=== PATIENT | male | born 1930 | race Caucasian/White ===

== ENCOUNTER 2017-02-13 20:08 | Inpatient (IN) | payer MEDICARE, BC ==
[~2017-02-13] VITALS: Ht 167.6 cm; Wt 106.6 kg
[~2017-02-13 20:08] MED LIST: BUME1TAB PO; KLOR20TA6 PO; MAGN400T PO; PREG75 PO; PRIN10TA PO; SIMVASTIN PO; TRAM50 PO; [UNRECOGNIZED DRUG - OTHER]
[2017-02-13 20:23] VITALS: BP 146/65; PULSE 61; RESP 16; TEMP 98.3; O2SAT 96
[2017-02-13 20:35] VITALS: BP 146/65; PULSE 61; RESP 16; TEMP 98.3; O2SAT 96
[2017-02-13] MEDS ORDERED: SODIUM CHLORIDE 0.9% FLUSH 5 ML FLUSH IVF PRN (21:00)
--- NOTE | 2017-02-13 21:07 | PD ---
HPI Chief Complaint: General Weakness Time Seen by Provider: 20:33 Travel History International Travel<30 days: No Contact w/Intl Traveler<30days: No Traveled to known affect area: No History of Present Illness HPI Patient 86-year-old male presents emergency department for evaluation of frequent falls over the past 3 days as well as fatigue. 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 He thinks might have a urinary tract infection. No chest pain or shortness of breath no abdominal pain no fevers. Patient states he feels okay just some weakness in his legs. No history of trauma. PFSH Past Medical History Arthritis: Yes Asthma: No Autoimmune Disease: No Blood Disorders: No Anxiety: No Depression: No Heart Rhythm Problems: No Cancer: No Cardiovascular Problems: Yes (WILLIAM FILTER PLACED 03-25-06) High Cholesterol: Yes Chemotherapy: No Chest Pain: No Congestive Heart Failure: No COPD: No Cerebrovascular Accident: No Diabetes: Yes Patient Takes Glucophage: No Diminished Hearing: No Endocrine: Yes (DIABETIC) Gastrointestinal Disorders: Yes (RECENT POLYP REMOVED) GERD: Yes Glaucoma: Yes Genitourinary: Yes Headaches: No Hepatitis: No Hiatal Hernia: Yes Hypertension: Yes Immune Disorder: No Kidney Stones: No Musculoskeletal: Yes Neurologic: Yes (C5-6.6-7 CERV FUSION) Psychiatric: No Respiratory: Yes Myocardial Infarction: No Radiation Therapy: No Renal Failure: No Seizures: No Sickle Cell Disease: No Sleep Apnea: Yes (BIPAP AT NIGHT NEEDED) Thyroid Disease: No Ulcer: No Tetanus Vaccination: < 5 Years Influenza Vaccination: Yes ?: Not Past Surgical History Abdominal Surgery: Yes (HERNIA REPAIR) AICD: No Cardiac Surgery: No Ear Surgery: No Endocrine Surgery: No Eye Surgery: Yes (EYE ORBIT ?) Genitourinary Surgery: Yes (PROSTATE NO CANCER) Gynecologic Surgery: Yes (PENILE IMPLANT) Joint Replacement: Yes (left total knee) Neurologic Surgery: Yes (01/2006 LALMINECTOMY FUSION C5-6,6-7) Oral Surgery: No Pacemaker: No Thoracic Surgery: No Other Surgery: Yes Social History Alcohol Use: No Tobacco Use: No Substance Use: No Allergies-Medications (Allergen,Severity, Reaction): Coded Allergies: Medrol (Verified Allergy, Severe, Swelling, 04/24/06) Prednisone (Verified Adverse Reaction, Severe, "STEROIDS"-SWELLING, HYPONATREMIA,HYPOKALEMIA, 04/24/06) Reported Meds & Prescriptions Reported Meds & Active Scripts Active Keflex (Cephalexin) 500 Mg Cap 500 Mg PO Q6H 7 Days Reported Mag-Ox 400 (Magnesium Oxide) 400 Mg Tab 400 Mg PO DAILY [Simvastin] 20 Mg PO DAILY Prinivil (Lisinopril) 10 Mg Tab 10 Mg PO DAILY [Travoprost Z] 1 Lyrica (Pregabalin) 75 Mg Cap 75 Mg PO BID Bumex (Bumetanide) 1 Mg Tab 1 Mg PO DAILY K-Dur (Potassium Chloride) 20 Meq Tabcr 40 Meq PO DAILY Ultram (Tramadol HCl) 50 Mg Tab 1 Tab PO Q4HPRN FOR PAIN Review of Systems Except as stated in HPI: all other systems reviewed are Neg Physical Exam Narrative GENERAL: Well-developed well-nourished no apparent distress SKIN: Warm and dry. HEAD: Atraumatic. Normocephalic. EYES: Pupils equal and round. No scleral icterus. No injection or drainage. ENT: No nasal bleeding or discharge. Mucous membranes pink and moist. NECK: Trachea midline. No JVD. CARDIOVASCULAR: Regular rate and rhythm. No murmur appreciated. RESPIRATORY: No accessory muscle use. Clear to auscultation. Breath sounds equal bilaterally. GASTROINTESTINAL: Abdomen soft, non-tender, nondistended. Hepatic and splenic margins not palpable. MUSCULOSKELETAL: No obvious deformities. No clubbing. No cyanosis. No edema. NEUROLOGICAL: Awake and alert. No obvious cranial nerve deficits. Motor grossly within normal limits. Normal speech. PSYCHIATRIC: Appropriate mood and affect; insight and judgment normal. Data Data Last Documented VS Vital Signs Date Time Temp Pulse Resp B/P Pulse Ox O2 Delivery O2 Flow Rate FiO2 02/13/17 20:35 98.3 61 16 146/65 96 Orders Electrocardiogram (02/13/17 20:50) Ckmb (Isoenzyme) Profile (02/13/17 20:50) Complete Blood Count With Diff (02/13/17 20:50) Comprehensive Metabolic Panel (02/13/17 20:50) Magnesium (Mg) (02/13/17 20:50) Troponin I (02/13/17 20:50) Chest, Single Ap (02/13/17 20:50) Ecg Monitoring (02/13/17 20:50) Iv Access Insert/Monitor (02/13/17 20:50) Oximetry (02/13/17 20:50) Oxygen Administration (02/13/17 20:50) Sodium Chloride 0.9% Flush (Ns Flush) (02/13/17 21:00) Urinalysis - C+S If Indicated (02/13/17 20:51) CKMB (02/13/17 21:10) CKMB% (02/13/17 21:10) Urine Culture (02/13/17 21:21) Ampicillin-Sulbactam Inj (Unasyn Inj) (02/13/17 22:15) Blood Culture (02/13/17 22:01) Admit Order (Ed Use Only) (02/14/17 ) Labs Laboratory Tests Test 02/13/17 02/13/17 21:10 21:21 White Blood Count 13.1 TH/MM3 Red Blood Count 4.26 MIL/MM3 Hemoglobin 12.0 GM/DL Hematocrit 36.1 % Mean Corpuscular Volume 84.8 FL Mean Corpuscular Hemoglobin 28.1 PG Mean Corpuscular Hemoglobin 33.2 % Concent Red Cell Distribution Width 14.2 % Platelet Count 196 TH/MM3 Mean Platelet Volume 9.2 FL Neutrophils (%) (Auto) 80.2 % Lymphocytes (%) (Auto) 11.5 % Monocytes (%) (Auto) 6.7 % Eosinophils (%) (Auto) 0.4 % Basophils (%) (Auto) 1.2 % Neutrophils # (Auto) 10.4 TH/MM3 Lymphocytes # (Auto) 1.5 TH/MM3 Monocytes # (Auto) 0.9 TH/MM3 Eosinophils # (Auto) 0.1 TH/MM3 Basophils # (Auto) 0.2 TH/MM3 CBC Comment DIFF FINAL Differential Comment Sodium Level 137 MEQ/L Potassium Level 4.0 MEQ/L Chloride Level 102 MEQ/L Carbon Dioxide Level 24.3 MEQ/L Anion Gap 11 MEQ/L Blood Urea Nitrogen 22 MG/DL Creatinine 1.20 MG/DL Estimat Glomerular Filtration 57 ML/MIN Rate Random Glucose 105 MG/DL Calcium Level 8.6 MG/DL Magnesium Level 2.2 MG/DL Total Bilirubin 0.7 MG/DL Aspartate Amino Transf 15 U/L (AST/SGOT) Alanine Aminotransferase 14 U/L (ALT/SGPT) Alkaline Phosphatase 58 U/L Total Creatine Kinase 227 U/L Creatine Kinase MB 1.7 NG/ML Troponin I LESS THAN 0.02 NG/ML Total Protein 6.7 GM/DL Albumin 2.9 GM/DL Urine Collection Type VOIDED Urine Color STRAW Urine Turbidity CLEAR Urine pH 6.0 Urine Specific Farrar 1.005 Urine Protein NEG mg/dL Urine Glucose (UA) NEG mg/dL Urine Ketones NEG mg/dL Urine Occult Blood TRACE Urine Nitrite NEG Urine Bilirubin NEG Urine Leukocyte Esterase MOD Urine WBC INNUM /hpf Urine WBC Clumps RARE Urine Squamous Epithelial 0-2 /hpf Cells Urine Bacteria FEW /hpf Microscopic Urinalysis Comment CULTURE INDICATED MDM Medical Decision Making Medical Screen Exam Complete: Yes Emergency Medical Condition: Yes Interpretation(s) EKG shows normal sinus rhythm left axis deviation, abnormal R wave progression. Probable early or inferior infarct. No ST-T changes. Comparison to 2009 symptoms no change. Differential Diagnosis Urinary tract infection, sepsis unlikely, weakness, fatigue. Narrative Course Patient workup in the ER shows minimally elevated white blood cell count without Sirs criteria. Does have a urinary tract infection. Given Unasyn in the ER and plan was to discharge with Keflex. On revisited the patient he states he would really like to go home. The family states that he is really not ambulatory at baseline and they would like to consider putting him in a residential because they aren't sure that they can take care of him at home anymore. Patient is initially reluctant to this idea the family states that they are unable to take care of him he ultimately agrees for admission. Dr. Lew has been paged for admission for consideration of placement. Diagnosis Primary Impression: UTI (urinary tract infection) Additional Impression: Fatigue Admitting Information Admitting Physician Requests: Observation Med/Other Pt SpecificInfo: Prescription(s) given Scripts Cephalexin (Keflex)500 Mg [id number] Mg PO Q6H 7 Days Ref 0 Prov:Amor Silver MD 02/13/17 Condition: Stable Amor Silver MD Feb 13, 2017 21:07
[2017-02-13 21:15] LABS: AUTOMATED NEUTROPHIL # 10.4 TH/MM3 (1.8-7.7); BASOPHIL # 0.2 TH/MM3 (0-0.2); BASOPHIL % 1.2 % (0.0-2.0); EOSINOPHIL # 0.1 TH/MM3 (0-0.4); EOSINOPHIL % 0.4 % (0.0-4.0); HEMATOCRIT 36.1 % (39.0-51.0); HEMO FLAGS DIFF FINAL; LYMPH % 11.5 % (9.0-44.0); LYMPHOCYTE # 1.5 TH/MM3 (1.0-4.8); MEAN CELL VOLUME 84.8 FL (80.0-100.0); MEAN CORPUSCULAR HEMOGLOBIN 28.1 PG (27.0-34.0); MEAN CORPUSCULAR HGB CONC 33.2 % (32.0-36.0); MONO % 6.7 % (0.0-8.0); NEUT % 80.2 % (16.0-70.0); PLATELET COUNT 196 TH/MM3 (150-450); RED BLOOD COUNT 4.26 MIL/MM3 (4.50-5.90); RED CELL DISTRIBUTION WIDTH 14.2 % (11.6-17.2); WHITE BLOOD COUNT 13.1 TH/MM3 (4.0-11.0)
[2017-02-13 21:26] LABS: CHLORIDE 102 MEQ/L (98-107); SODIUM (NA) 137 MEQ/L (136-145)
[2017-02-13 21:30] LABS: ANION GAP 11 MEQ/L (5-15); BICARBONATE 24.3 MEQ/L (21.0-32.0); BLOOD UREA NITROGEN 22 MG/DL (7-18); MAGNESIUM 2.2 MG/DL (1.5-2.5)
[2017-02-13 21:33] LABS: ALT (GPT) 14 U/L (12-78); AST (GOT) 15 U/L (15-37); GLOMERULAR FILTRATION RATE 57 ML/MIN (>89)
[2017-02-13 21:35] LABS: TOTAL BILIRUBIN ADULT 0.7 MG/DL (0.2-1.0)
[2017-02-13 21:36] LABS: ALKALINE PHOSPHATASE 58 U/L (45-117); CREATINE KINASE 227 U/L (39-308)
--- NOTE | 2017-02-13 21:43 | RADHPO ---
EXAM DATE/TIME: 02/13/2017 21:26 [facility] COMPARISON: No previous studies available for comparison. INDICATIONS : Right side chest pain post fall 2 days ago. MEDICAL HISTORY : Diabetes mellitus type II. SURGICAL HISTORY : Fusion, cervical. ENCOUNTER: Initial ACUITY: 3 days PAIN SCORE: 6/10 LOCATION: Left chest FINDINGS: A single view of the chest demonstrates platelike areas of atelectasis in both lower lungs. The upper lung wei are clear. There are no pleural effusions or pulmonary edema. The heart size is within n ormal limits. The bony structures are grossly intact.. CONCLUSION: Bibasilar platelike atelectasis. Quentin Minor MD on February 13, 2017 at 21:41 Board Certified Radiologist. This report was verified electronically.
[2017-02-13 21:48] LABS: CKMB 1.7 NG/ML (0.5-3.6)
[2017-02-13 21:48] LABS: BLOOD, URINE TRACE (NEG); GLUCOSE,URINE NEG (NEG); KETONE, URINE NEG (NEG); NITRITE,URINE NEG (NEG)
[2017-02-13 21:52] LABS: METHOD OF COLLECTION VOIDED; URINE COLOR STRAW (YELLW/STRAW)
[2017-02-13 21:54] LABS: WBC, URINE INNUM /hpf (0-5)
[2017-02-13 21:55] LABS: BACTERIA, URINE FEW /hpf; COMMENT (UR) CULTURE INDICATED; CULTURE IF INDICATED CULTURE INDICATED; SQUAMOUS EPITHELIAL CELL URINE 0-2 /hpf (0-5)
[2017-02-13] MEDS ORDERED: AMPICILLIN-SULBACTAM INJ 3 GM in SODIUM CHLORIDE 0.9% INJ 100 ML IV ONE (22:15)
[2017-02-13] MEDS ORDERED: CEPH-460 PO (23:03)
[2017-02-14] VITALS (8 sets, daily range): BP systolic 106–140; BP diastolic 50–82; PULSE 58–65; RESP 18–22; TEMP 97–98.3; O2SAT 95–99
[2017-02-14] MEDS ORDERED: NALOXONE HCL 0.4 MG/ML AMP IV PRN (07:30)
[2017-02-14] MEDS ORDERED: SODIUM CHLORIDE 0.9% FLUSH 5 ML FLUSH FLUSH PRN (07:30)
[2017-02-14] MEDS ORDERED: SENNOSIDES 8.6 MG TAB PO PRN (07:30)
[2017-02-14] MEDS ORDERED: ACETAMINOPHEN 325 MG TAB PO PRN (07:30)
[2017-02-14 08:47] LABS: AUTOMATED NEUTROPHIL # 7.9 TH/MM3 (1.8-7.7); BASOPHIL # 0.1 TH/MM3 (0-0.2); BASOPHIL % 0.6 % (0.0-2.0); EOSINOPHIL # 0.1 TH/MM3 (0-0.4); EOSINOPHIL % 0.9 % (0.0-4.0); HEMATOCRIT 36.9 % (39.0-51.0); HEMO FLAGS DIFF FINAL; LYMPH % 11.2 % (9.0-44.0); LYMPHOCYTE # 1.1 TH/MM3 (1.0-4.8); MEAN CELL VOLUME 84.6 FL (80.0-100.0); MEAN CORPUSCULAR HGB CONC 33.2 % (32.0-36.0); MONO % 7.5 % (0.0-8.0); NEUT % 79.8 % (16.0-70.0); PLATELET COUNT 190 TH/MM3 (150-450); RED BLOOD COUNT 4.36 MIL/MM3 (4.50-5.90); RED CELL DISTRIBUTION WIDTH 14.4 % (11.6-17.2); WHITE BLOOD COUNT 9.9 TH/MM3 (4.0-11.0)
[2017-02-14] MEDS: LISINOPRIL 10 MG TAB PO SCH (09:06)
[2017-02-14] MEDS: POTASSIUM CHLORIDE 20 MEQ CONTROLLED RELEASE TAB PO SCH (09:06)
[2017-02-14] MEDS: BUMETANIDE 1 MG TAB PO SCH (09:06)
[2017-02-14] MEDS: MAGNESIUM OXIDE 400 MG TAB PO SCH (09:07)
[2017-02-14] MEDS: PREGABALIN 75 MG CAP PO SCH ×2 (09:07→20:48)
[2017-02-14] MEDS: PRAVASTATIN SOD 40 MG TAB PO SCH (09:07)
[2017-02-14] MEDS: HEPARIN SODIUM - SQ 10,000 UNITS/ML VIAL SQ SCH ×2 (09:08→20:48)
[2017-02-14] MEDS: SODIUM CHLORIDE 0.9% FLUSH 5 ML FLUSH FLUSH SCH ×2 (09:08→20:49)
[2017-02-14] MEDS: traMADol HCL 50 MG TAB PO PRN ×2 (10:02→20:51)
[2017-02-14] MEDS: cefTRIAXone INJ 1,000 MG in SODIUM CHLORIDE 0.9% INJ 100 ML IV SCH (10:02)
--- NOTE | 2017-02-14 11:19 | EKG ---
Date Performed: 02/13/2017 Time Performed: 21:00:12 PTAGE: 86 years EKG: Sinus rhythm Left axis deviation rSr'(V1) - probable normal variant Inferior infarct - age undetermined Possible anterior infarct - age undetermined Low QRS voltages in precordial leads Abnormal ECG PREVIOUS TRACING : 06/08/2010 05.03 DOCTOR: Johny Phillips Interpretating Date/Time 02/14/2017 11:17:58
--- NOTE | 2017-02-14 14:57 | RADHPO ---
EXAM DATE/TIME: 02/14/2017 13:10 [facility] COMPARISON: No previous studies available for comparison. INDICATIONS : Weakness. MEDICAL HISTORY : Hypercholesterolemia. Gastroesophageal reflux disease. Hypertension. Sleep apnea. Hiatal hernia. UTI. Dyspnea. Arthritis. MRSA. SURGICAL HISTORY : Total knee replacement, left. Hernia repair. IVC filter. Penile implant. Prostate surgery. ENCOUNTER: Initial ACUITY: 3 days PAIN SCORE: 5/10 LOCATION: Right neck PEAK SYSTOLIC VELOCITIES (cm/sec): ICA/CCA RATIO: Right: 0.9 Left: 0.8 ICA: Right: 123 Left: 78 CCA: Right: 136 Left: 97 ECA: Right: 158 Left: 76 VERTEBRAL: Right: 45 antegrade Left: 51 antegrade Elevated flow velocities and ICA/CCA ratios have been found to correlate with increased degrees of vessel stenosis, calculated as percentage of diameter relative to a normal segment of distal ICA/CCA FINDINGS: RIGHT CAROTID: No significant stenosis is visualized. The waveforms are within normal limits. LEFT CAROTID: No significant stenosis is visualized. The waveforms are within normal limits. VERTEBRAL ARTERIES: Antegrade flow is seen in both vertebral arteries. MISCELLANEOUS: None. CONCLUSION: No hemodynamically significant stenosis. Amor Potter MD on February 14, 2017 at 14:54 Board Certified Radiologist. This report was verified electronically.
--- NOTE | 2017-02-14 16:17 | EC ---
Study Study Date:02/14/2017 STUDY CONCLUSIONS SUMMARY - Procedure narrative: Transthoracic echocardiography. Image quality was poor. Scanning was performed from the parasternal, apical, and subcostal acoustic windows. - Left ventricle: The cavity size was normal. Wall thickness was normal. Systolic function was normal. The estimated ejection fraction was in the range of 60% to 65%. Although no diagnostic regional wall motion abnormality was identified, this possibility cannot be completely excluded on the basis of this study. - Aortic valve: Poorly visualized. Mild regurgitation. - Mitral valve: Mildly to moderately calcified annulus. Mild regurgitation. If LV function is below 40, please consider prescribing an ACEI or ARB or document rationale for non-use. PROCEDURE DATA STUDY STATUS: Elective. Procedure: Transthoracic echocardiography. Image quality was poor. Scanning was performed from the parasternal, apical, and subcostal acoustic windows. Study completion: The patient tolerated the procedure well. Transthoracic echocardiography. M-mode, complete 2D, complete spectral Doppler, and color Doppler. Patient status: Inpatient. CARDIAC ANATOMY LEFT VENTRICLE: The cavity size was normal. Wall thickness was normal. Systolic function was normal. The estimated ejection fraction was in the range of 60% to 65%. Although no diagnostic regional wall motion abnormality was identified, this possibility cannot be completely excluded on the basis of this study. AORTIC VALVE: Poorly visualized. Doppler: Transvalvular velocity was within the normal range. There was no stenosis. Mild regurgitation. Peak gradient: 11mm Hg (S). AORTA: Aortic root: The aortic root was normal in size. MITRAL VALVE: Mildly to moderately calcified annulus. Doppler: Transvalvular velocity was within the normal range. There was no evidence for stenosis. Mild regurgitation. Peak gradient: 4mm Hg (D). LEFT ATRIUM: The atrium was normal in size. RIGHT VENTRICLE: The cavity size was normal. Wall thickness was normal. PULMONIC VALVE: Doppler: Transvalvular velocity was within the normal range. There was no evidence for stenosis. No regurgitation. TRICUSPID VALVE: Structurally normal valve. Doppler: Transvalvular velocity was within the normal range. No regurgitation. PULMONARY ARTERY: The main pulmonary artery was normal-sized. Systolic pressure was within the normal range. RIGHT ATRIUM: The atrium was normal in size. PERICARDIUM: There was no pericardial effusion. SYSTEMIC VEINS: Inferior vena cava: The vessel was normal in size. BASIC MEASUREMENTS ADULT NORMAL Left ventricle Volume, ED, MOD, 1-plane 109 ml Volume, ES, MOD, 1-plane 36 ml Ejection fraction, MOD, 1-plane 67 % Stroke volume, MOD, 1-plane 73 ml Aortic valve Leaflet separation 15 mm 15-26 BASIC MEASUREMENTS ADULT NORMAL Aortic valve Leaflet separation 15 mm 15-26 Aorta Root diameter, ED 33 mm 20-37 DOPPLER MEASUREMENTS ADULT NORMAL Aortic valve Peak velocity, S 169 cm/s Peak gradient, S 11 mm Hg Regurgitant velocity, ED 356 cm/s Regurgitant deceleration 1160 cm/s^2 Regurgitant pressure half-time 897 ms Regurgitant gradient, ED 51 mm Hg Mitral valve Peak E-wave velocity 98.2 cm/s Peak A-wave velocity 130 cm/s Pressure half-time 109 ms Peak gradient, D 4 mm Hg Peak E/A ratio 0.8 LEGEND: Mean values are shown as u=mean value. Asterisk (*) henley values outside specified normal range. Prepared and signed by Isaac Benedict [id number]
[2017-02-15] VITALS: BP 138/71; PULSE 57; RESP 20; TEMP 97.9; O2SAT 96
[2017-02-15] MEDS: traMADol HCL 50 MG TAB PO PRN (00:10)
[2017-02-15 08:00] VITALS: BP 135/69; PULSE 59; RESP 18; TEMP 98.3; O2SAT 95
--- NOTE | 2017-02-15 08:33 | HHI.FPPN ---
Objective Vitals Vital Signs Date Time Temp Pulse Resp B/P Pulse Ox O2 Delivery O2 Flow Rate FiO2 02/15/17 00:00 97.9 57 20 138/71 96 02/14/17 20:00 98.2 64 20 106/50 95 02/14/17 16:00 97.2 60 22 138/74 96 02/14/17 12:00 97.0 58 20 125/82 97 I/O 02/14/17 02/14/17 02/14/17 02/15/17 02/15/17 02/15/17 07:00 15:00 23:00 07:00 15:00 23:00 Intake Total 750 ml 565 ml 60 ml Output Total 200 ml 925 ml 425 ml 225 ml Balance -200 ml -175 ml 140 ml -165 ml Intake Oral 750 ml 565 ml 60 ml Output Urine Total 200 ml 925 ml 425 ml 225 ml # Voids 1 # Bowel Movements 0 0 0 Result Diagram: 02/14/17 0830 02/13/172109 A/P Problem List: (1) UTI (urinary tract infection) Status: Acute Plan: contniue rocephin pending ID and sensativity. Now with GNR. (2) Fatigue Status: Acute Plan: Likely due to UTI (3) Altered mental status Status: Acute Plan: Confusion episode between his falls. No head injury. NO headaches. Doing well now. Carotids and ECHO wnl. (4) Gait instability Status: Acute Plan: Work with PT. goal to go home vs to rehab depending on his abilities. He normally walks with a walker at home and already has home health/PT set up by the [facility]. I would like to see him try to walk more today to see his abilities. [facility] if needed. (5) Vitamin B 12 deficiency Status: Chronic Plan: he notes that he is normally on vit B12 2 times per month but he hasn't been able to get it from the [facility] pharmacy for a few months. Will give that now. That may be part in his fatigue, however he isn't anemic. (6) Chronic pain Status: Chronic Plan: He has had cervical spine surgery, bilateral knee surgeries, bilateral rotator cuff disease. He notes aching all over. He didn't tell me yesterday that he normally takes oxycodone 7.5/325mg daily to BID if the tramadol doesnt' work and he is asking about it today. Ordered. (7) Constipation Status: Acute Plan: Notes he hasn't gone in days and needs something to go. Feels full. Will give lactulose. Suppository if needed. Likely worsened with oxycodone. Problem Qualifiers (1) UTI (urinary tract infection): Qualified Code: N30.00 - Acute cystitis without hematuria (2) Fatigue: (3) Chronic pain: Qualified Code: G89.28 - Other chronic postprocedural pain (4) Constipation: Qualified Code: K59.03 - Drug-induced constipation Aminta Lew MD Feb 15, 2017 08:33
[2017-02-15] MEDS ORDERED: BISACODYL 10 MG SUPP RECTAL PRN (09:00)
[2017-02-15] MEDS ORDERED: CYANOCOBALAMIN 1000 MCG/ML VIAL IM ONE (09:00)
--- NOTE | 2017-02-15 09:14 | MH ---
cc: ASHLEE LINCOLN MD DATE OF ADMISSION 02/14/2017 CHIEF COMPLAINT Confusion, falls at home, inability to walk independently. HISTORY OF PRESENT ILLNESS Mr. Garrett is a 86-year-old white male well known to me from the office who notes he had had several falls over the past three days as well as increasing fatigue and confusion. His daughter is with him today and helps with history. He notes he had a fall on Monday morning when he is going to the bathroom. At that point, when he started to come out of the bathroom his legs gave away and he fell backwards. His son was actually behind him and his son cushioned his fall. He did not have any particular injury at that time. He had a fall later in the evening on the same day in a similar situation when he was coming out of the bathroom and had legs giving away causing him to fall back into vanity in the bathroom. Again, he did not have any injury other just a little bruised feeling to the left ribs where he hit the cabinet. He did not initially give me this history, but his daughter states that in between those two events he had a short-lived episode when speaking to his were he was confused. Apparently, the patient was trying to figure out how to get out of the chair and to transfer, but he was actually talking to his about a card game and she could not figure out what he was trying to get answered. He did not have any awareness that his words were talking about a card game. His daughter states that his did not note him having any slurred speech, no weakness on one side more than another and no other stroke symptomatology. He has not had that previously. There has not been any fever or chills or other symptomatology. On Monday afternoon, they had their home health person around who did an evaluation and did not find anything in particular, but upon discussion she was concerned that he may have a urinary tract infection and encouraged him to come to the emergency room for evaluation. His family and are very concerned that he is not safe at home in his current condition with his frequent falls and gait instability with has significantly worsened in the past three days without any other particular etiology. They would like to have him strong before returning to home as it is usually just he and his at home and she cannot help him to transfer. PAST MEDICAL HISTORY 1. Hyperlipidemia, 2. Obesity, 3. Restless leg symptoms 4. Myelopathy 5. Peripheral neuropathy to the bilateral extremities 6. Hypertensive 7. Constipation 8. Chronic renal insufficiency. 9. Adhesive capsulitis of both shoulders along with muscle weakness 10. Insomnia 11. Peripheral edema 12. Sleep apnea 13. Erectile dysfunction 14. Peptic ulcer disease 15. Pulmonary embolus several years ago after a neck surgery. PAST SURGICAL HISTORY 1. Knee surgery 2. Prostate biopsy 3. Stomach surgery 4. Cervical spine surgery 5. [place] filter placement 6. Penile implant SOCIAL HISTORY He is . 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 He has a high school 9th grade education. He previously smoked cigars for approximately two years, no persistent smoking, rate alcohol use. No illicit drug use. MEDICATIONS 1. Furosemide 40 mg 1/2 tablet daily. 2. Lisinopril 20 mg 1/2 tablet daily. 3. Lyrica 75 mg p.o. b.i.d. 4. Multivitamin 5. Wolcott 3 6. Oxycodone APAP t.i.d. p.r.n. pain which he has really not been using. 7. He normally says Tramadol 50 mg p.o. t.i.d. p.r.n. pain. 8. Vitamin D 2000 units daily. 9. Lidoderm patches he used in the past for pain if needed ALLERGIES MIRAPEX - DIZZY SIMVASTATIN - LEG PAIN ANS WEAKNESS, MYOPATHIES. FAMILY HISTORY Dad at 68 with cirrhosis and alcohol use. Mom at age 27 with ovarian cancer. Paternal half-sister who is healthy. Another sister with arthritis, depression and blood clots. He thinks she may have a coagulation disorder. A son with asthma and a daughter who had a benign breast lump. IMMUNIZATIONS Pneumovax 23 given in 2001 and Prevnar December of 2015. Normally gets his flu shot yearly. OTHER PHYSICIANS [facility] He has also seen Dr. Felix in endocrinology, Dr. Owen neurology and Dr. Tucker in urology. REVIEW OF SYSTEMS The patient denies any changes in vision or hearing. No sore throat and no changes in neck discomfort. he has chronic shoulder discomfort and decreased range of motion of the upper extremities which is chronic. He normally walks with a walker. He has is noted increased lower extremity weakness and giving away of the knee that has been diffuse and nonfocal. He is not having particular pain to the legs. He does get restless legs frequently. Denies any dysuria or hematuria. Any change in the appearance of his urine. No hematochezia or melena. No diarrhea. He does tend to have some constipation but no abdominal pain. It has been several days since his last BM and he is feeling full. No nausea or vomiting. No cough or upper respiratory symptoms. He has mild shortness of breath with activity but not severe or changed. He denies any chest discomfort. He has not had any rashes, no injuries or signs of infection. Remainder of review of systems is negative. PHYSICAL EXAMINATION VITAL SIGNS: On admission to the emergency room, temperature 98.3, pulse 51, respirations 16, 146/55 blood pressure with a pulse ox of 96% on room air. This morning 97.7 with pulse of 65 Respiratory rate 20, blood pressure 140/63 but it has varied down into the 120s/60s overnight. O2 sat 97% on room air. GENERAL: He is an obese white male sitting in bed in no acute distress, able to give me a coherent history. HEENT: Pupils are equal and reactive. normal extraocular movement. Oropharynx appears benign without erythema. No swelling, no skin lesions. NECK: Supple without lymphadenopathy, no carotid bruits. CARDIOVASCULAR: Regular rate and rhythm without murmur, rubs or gallops. LUNGS: Clear to auscultation bilaterally without wheezes or rhonchi. ABDOMEN: Soft with normal bowel sounds, obese, no tenderness to percussion. GENITOURINARY:: Circumcised male. He has penile implant in place. There is no discharge, no erythema or rashes noted. LOWER EXTREMITIES: Thick lower extremities but no calf tenderness. Negative Homans. Good range of motion of the lower extremities while he is laying in bed. He does have periodic leg movements uncontrollable, noting he hasn't had his lyrica NEUROLOGIC: Cranial nerves II-XII are grossly intact. He has 4/5 estate planner strength bilaterally symmetrically. He is unable to elevate his shoulders due to adhesive capsulitis bilaterally. This has been chronic. He does have intact flexion/extension of the elbows with 4/5 strength. Lower extremities show 5/5 strength proximally and distally while supine in bed. I did not have him ambulate as he did not have a walker in the room. SKIN: no rashes. No erythema. He has no bruising noted to the ribs. There is no bruising to the back or the buttocks that I could see. LABORATORY DATA White count was 13.1 last night with a hemoglobin of 12.0. Platelets 196 right left shift 80.2% Chemistry shows a GFR 57, troponin less than 0.02. CPK 227. Urinalysis showed trace blood, moderate leukocyte, innumerable white blood cells, rare clumps, few bacteria pending culture. Pending blood cultures. IMAGING STUDIES Chest x-ray was negative. ASSESSMENT AND PLAN 1. Urinary tract infection. He was given Unasyn in the emergency room. We will start him on Rocephin 1 gram IV daily pending the urine culture and blood cultures. He is not febrile at this time. He has mildly elevated white count in the emergency room. No other signs or symptoms of sepsis. 2. Generalized weakness with falls at home. Could likely be due to the start of the urinary tract infection of which he had minimal symptomatology. We will have him work with physical therapy today to see how he does with his mobility. His family is not comfortable bringing him home at this point if he continues to be in his current condition. We will consider rehabilitation placement depending upon how he does over the next few days with physical therapy and after being given antibiotics. 3. Altered mental status. He did have an episode of confusion between his two falls that did not show any focal neurological deficits but just confusion and odd speech, not congruent to the situation. His lab work has been so far okay. We will check thyroid and also carotid Doppler and echocardiogram to make there is no other reason for TIA. He is neurologically intact at this time. I do not see any signs of stroke. He denies having had any head injury with any of his falls. There is no signs of any laceration. No signs of concussion. 4. Hypertension. We will continue him on his current medication. 5. History of deep venous thrombosis. I placed him on heparin for DVT prevention while here in the hospital. He has not had any coagulation disorders. Mostly his prior pulmonary embolus was secondary due to immobility after surgery. 6. Bilateral adhesive capsulitis. This has been a chronic issue for him. He does do physical therapy as much as possible but has not been able to resume the mobility. 7. DISPOSITION - I would like to see the patient be able to go home with home health. However, he and his family are concerned that with his current level of weakness that he would be too dependent on his for transportation assistance if he were to go home. May consider placing him in rehab short term after this hospitalization depending on test results. 8. Constipation: stool softeners, fluids, and adjust further if needed. 9. Restless legs: continue the Visiarc which has been working for neuropathy and restless legs MD KAYLAH Rivero/ /10:17 PM /9:04 AM MTDD
[2017-02-15] MEDS: cefTRIAXone INJ 1,000 MG in SODIUM CHLORIDE 0.9% INJ 100 ML IV SCH (09:55)
[2017-02-15] MEDS: LISINOPRIL 10 MG TAB PO SCH (09:56)
[2017-02-15] MEDS: PRAVASTATIN SOD 40 MG TAB PO SCH (09:56)
[2017-02-15] MEDS: HEPARIN SODIUM - SQ 10,000 UNITS/ML VIAL SQ SCH ×2 (09:56→21:54)
[2017-02-15] MEDS: PREGABALIN 75 MG CAP PO SCH ×2 (09:57→21:54)
[2017-02-15] MEDS: MAGNESIUM OXIDE 400 MG TAB PO SCH (09:57)
[2017-02-15] MEDS: oxyCODONE/ACETAMINOPHEN 7.5 MG/325 MG TAB PO PRN ×2 (09:57→18:34)
[2017-02-15] MEDS: LACTULOSE SYRUP 20 GM/30 ML CUP PO SCH ×2 (09:57→21:54)
[2017-02-15] MEDS: BUMETANIDE 1 MG TAB PO SCH (09:57)
[2017-02-15] MEDS: POTASSIUM CHLORIDE 20 MEQ CONTROLLED RELEASE TAB PO SCH (09:57)
[2017-02-15] MEDS: SODIUM CHLORIDE 0.9% FLUSH 5 ML FLUSH FLUSH SCH ×2 (09:58→21:54)
[2017-02-15 12:00] VITALS: BP 155/79; PULSE 67; RESP 20; TEMP 98.1; O2SAT 96
[2017-02-15 16:00] VITALS: BP 142/76; PULSE 65; RESP 20; TEMP 98.8; O2SAT 96
[2017-02-15 20:00] VITALS: BP 152/80; PULSE 65; RESP 18; TEMP 100.2; O2SAT 96
[2017-02-16] VITALS: BP 150/71; PULSE 66; RESP 18; TEMP 97.8; O2SAT 96
[2017-02-16 04:00] VITALS: BP 151/80; PULSE 69; RESP 18; TEMP 99; O2SAT 93
--- NOTE | 2017-02-16 08:45 | HHI.FPPN ---
Subjective Remarks Aggrivated this AM. Can't reach the call shelley so had BMs in bed yesterday. Hasn't been out of bed--felt like PT discouraged him from getting out of bed and didn't want him to walk. wants to be able to go to the commode for BM/ urination. Can't reach the water to drink and can't call for help. Notes people set him up to eat but he can't reach the table due to his bilateral rotator cuff issues. I discussed with charge nurse and will rearrange his set up, get him out of bed and get commode for BM. Pt wants to go to rehab--asked to speak to his family about it. Overall down this AM. No CP, SOB, nausea. Abd feels better. No pain with urination, has condom cath. No fever. Objective Vitals Vital Signs Date Time Temp Pulse Resp B/P Pulse Ox O2 Delivery O2 Flow Rate FiO2 02/16/17 04:00 99.0 69 18 151/80 93 02/16/17 00:00 97.8 66 18 150/71 96 02/15/17 20:00 100.2 65 18 152/80 96 02/15/17 19:56 18 02/15/17 16:00 98.8 65 20 142/76 96 02/15/17 12:00 98.1 67 20 155/79 96 02/15/17 11:00 18 I/O 02/15/17 02/15/17 02/15/17 02/16/17 02/16/17 02/16/17 07:00 15:00 23:00 07:00 15:00 23:00 Intake Total 60 ml 650 ml 650 ml 660 ml Output Total 225 ml 975 ml 2300 ml Balance -165 ml -325 ml 650 ml -1640 ml Intake Oral 60 ml 650 ml 650 ml 660 ml Output Urine Total 225 ml 975 ml 2300 ml # Bowel Movements 0 0 2 Result Diagram: 02/14/1782902/13/172109 Objective Remarks Gen: depressed WM, no distress, supine in bed. Call shelley was by his side but near his shoulder where he can't reach it. Cv: RRR, no murmur Lungs;clear bilaterally Abd: soft, obese, NT, softer Ext: no edema, right leg hyperpigmentation unchanged : condom cath in place, yellow, slightly cloudy urine Urinary Catheter: No Vascular Central Line Catheter: No A/P Problem List: (1) UTI (urinary tract infection) Status: Acute Plan: multidrug sensative UTI. Will change to PO and plan to transfer to rehab tomorrow. Will fill out [id number]. (2) Fatigue Status: Acute Plan: Likely due to UTI and now depression over his situation. He needs to be out of bed BID and to the commode when needed. (3) Altered mental status Status: Acute Plan: Confusion episode between his falls. No head injury. NO headaches. Doing well now. Carotids and ECHO wnl. resolved. (4) Gait instability Status: Acute Plan: Work with PT. goal to go home vs to rehab depending on his abilities. He normally walks with a walker at home and already has home health/PT set up by the [facility]. I would like to see him try to walk more today to see his abilities. He would like to consider going to [facility] at discharge if needed. I want him out of bed to walk with the walker today. Okay for family to bring in his usual walker that he feels more comfortable with. (5) Vitamin B 12 deficiency Status: Chronic Plan: he notes that he is normally on vit B12 2 times per month but he hasn't been able to get it from the [facility] pharmacy for a few months. Will give that now. That may be part in his fatigue, however he isn't anemic. (6) Chronic pain Status: Chronic Plan: He has had cervical spine surgery, bilateral knee surgeries, bilateral rotator cuff disease. He notes aching all over. He didn't tell me yesterday that he normally takes oxycodone 7.5/325mg daily to BID if the tramadol doesnt' work and he is asking about it today. Ordered. (7) Constipation Status: Acute Plan: Notes he hasn't gone in days and needs something to go. Feels full. Will give lactulose. Suppository if needed. Likely worsened with oxycodone. He had 2 reasonable BMs yesterday (unfortunately in the bed). Up to commode today. Problem Qualifiers (1) UTI (urinary tract infection): Qualified Code: N30.00 - Acute cystitis without hematuria (2) Fatigue: (3) Chronic pain: Qualified Code: G89.28 - Other chronic postprocedural pain (4) Constipation: Qualified Code: K59.03 - Drug-induced constipation Aminta Lew MD Feb 16, 2017 08:45
[2017-02-16] MEDS: LACTULOSE SYRUP 20 GM/30 ML CUP PO SCH ×2 (09:00→21:00)
[2017-02-16] MEDS: LISINOPRIL 10 MG TAB PO SCH (09:00)
[2017-02-16] MEDS: oxyCODONE/ACETAMINOPHEN 7.5 MG/325 MG TAB PO PRN (10:15)
[2017-02-16] MEDS: POTASSIUM CHLORIDE 20 MEQ CONTROLLED RELEASE TAB PO SCH (10:15)
[2017-02-16] MEDS: PRAVASTATIN SOD 40 MG TAB PO SCH (10:16)
[2017-02-16] MEDS: MAGNESIUM OXIDE 400 MG TAB PO SCH (10:16)
[2017-02-16] MEDS: PREGABALIN 75 MG CAP PO SCH ×2 (10:16→21:18)
[2017-02-16] MEDS: BUMETANIDE 1 MG TAB PO SCH (10:16)
[2017-02-16] MEDS: cefTRIAXone INJ 1,000 MG in SODIUM CHLORIDE 0.9% INJ 100 ML IV SCH (10:17)
[2017-02-16] MEDS: SODIUM CHLORIDE 0.9% FLUSH 5 ML FLUSH FLUSH SCH ×2 (10:17→21:18)
[2017-02-16] MEDS: HEPARIN SODIUM - SQ 10,000 UNITS/ML VIAL SQ SCH ×2 (10:17→21:18)
[2017-02-16 10:25] VITALS: BP 115/80; PULSE 81; RESP 15; TEMP 97; O2SAT 93
[2017-02-16 14:47] VITALS: BP 103/58; PULSE 87; RESP 16; TEMP 98.1; O2SAT 95
[2017-02-16] MEDS: traMADol HCL 50 MG TAB PO PRN (17:46)
[2017-02-16 18:04] VITALS: BP 115/71; PULSE 68; RESP 16; TEMP 98.6; O2SAT 97
[2017-02-16 20:00] VITALS: BP 114/47; PULSE 67; RESP 18; TEMP 98.1; O2SAT 97
[2017-02-17] VITALS: BP 128/61; PULSE 66; RESP 18; TEMP 97.5; O2SAT 96
[2017-02-17 04:00] VITALS: BP 120/64; PULSE 64; RESP 18; TEMP 97.8; O2SAT 97
[2017-02-17] MEDS: traMADol HCL 50 MG TAB PO PRN (06:01)
[2017-02-17] MEDS ORDERED: OXYC1TAB35 PO (07:38)
[2017-02-17 08:00] VITALS: BP 108/56; PULSE 70; RESP 18; TEMP 97.5; O2SAT 94
[2017-02-17] MEDS: LACTULOSE SYRUP 20 GM/30 ML CUP PO SCH ×2 (09:00→09:46)
[2017-02-17] MEDS: MAGNESIUM OXIDE 400 MG TAB PO SCH (09:46)
[2017-02-17] MEDS: POTASSIUM CHLORIDE 20 MEQ CONTROLLED RELEASE TAB PO SCH (09:46)
[2017-02-17] MEDS: PRAVASTATIN SOD 40 MG TAB PO SCH (09:46)
[2017-02-17] MEDS: BUMETANIDE 1 MG TAB PO SCH (09:46)
[2017-02-17] MEDS: cefTRIAXone INJ 1,000 MG in SODIUM CHLORIDE 0.9% INJ 100 ML IV SCH (09:47)
[2017-02-17] MEDS: LISINOPRIL 10 MG TAB PO SCH (09:47)
[2017-02-17] MEDS: PREGABALIN 75 MG CAP PO SCH (09:47)
[2017-02-17] MEDS: HEPARIN SODIUM - SQ 10,000 UNITS/ML VIAL SQ SCH (09:48)
[2017-02-17] MEDS: SODIUM CHLORIDE 0.9% FLUSH 5 ML FLUSH FLUSH SCH (09:53)
[2017-02-17] MEDS ORDERED: TRAV0.00 EACH EYE (10:11)
--- NOTE | 2017-02-17 10:19 | HHI.DS ---
Discharge Summary Admission Date Feb 14, 2017 at 09:21 Discharge Date: Feb 17, 2017 Admitting Diagnosis Weakness, UTI (1) UTI (urinary tract infection) Diagnosis: Principal Plan: multidrug sensative Proteus UTI. Will stop antibiotics as he has had 4 doses of rocephin. (2) Fatigue Diagnosis: Principal Plan: Likely due to UTI and now depression over his situation. He needs to be out of bed BID and to the commode when needed. He is doing better today. (3) Altered mental status Diagnosis: Principal Plan: Confusion episode between his falls. No head injury. NO headaches. Doing well now. Carotids and ECHO wnl. resolved. He seems back to his normal self. His daughter is here today and notes he has been clear mentally since admission (4) Gait instability Diagnosis: Principal Plan: Work with PT. He is not at the point of stability to do well at home at this point. He has been accepted at [facility] rehab. He normally walks with a walker at home and already has home health/PT set up by the [facility]. I would like to see him try to walk more today to see his abilities. Okay for family to bring in his usual walker that he feels more comfortable with. He felt better with activity yesterday but notes his shoulders are much stiffer than usual. (5) Vitamin B 12 deficiency Diagnosis: Secondary Plan: he notes that he is normally on vit B12 2 times per month but he hasn't been able to get it from the [facility] pharmacy for a few months. Will give that now. That may be part in his fatigue, however he isn't anemic. repeat in 2 weeks. (6) Chronic pain Diagnosis: Secondary Plan: He has had cervical spine surgery, bilateral knee surgeries, bilateral rotator cuff disease. He notes aching all over. He uses the oxycodone BID, tramadol prn during the day. Encourage PT/OT at rehab to regain his abilities. (7) Constipation Diagnosis: Secondary Plan: He has had several BMs with lactulose. Likely worsened with oxycodone. Will resume back to the senna but use the lactulose prn. Brief History 86 yo WM with a history of bilateral rotator cuff disease, former cervical spine surgery with post op DVT/PE (arminda filter placement due to inability to use blood thinners at the time), HTN, hyperlipidemia, obesity who is normally independently ambulatory at home with his walker and a power chair for longer distances. [facility] but had a sudden decline, confusion, and weakness with 2-3 falls prior to coming to the hospital and being dx with proteus UTI CBC/BMP: 02/14/17 0830 02/13/17 2110 PE at Discharge Gen: obese WM, no distress, supine in bed. Daughter is here and he is less down this AM, call shelley now in reach but still doesn't have bed controls Cv: RRR, no murmur Lungs;clear bilaterally Abd: soft, obese, NT, softer Ext: no edema, right leg hyperpigmentation unchanged, dry skin : condom cath in place, yellow, urine now clear Hospital Course Pt did well with IV rocephin, mentation cleared. Still weak and needing PT/OT prior to return home. Constipation cleared with meds. Counselled partially on stressors at home ( with mild cognitive impairment and family is helping) Pt Condition on Discharge: Good Discharge Disposition: Discharge to SNF Discharge Instructions DIET: Follow Instructions for: Heart Healthy Diet Additional Diet Instructions: Patient needs help to get food, fluids set up due to bilateral rotator cuff issues Activities you can perform: Full Weight Bearing Other Activity Instructions: use walker for all activities. Okay for him to use his home walker which is already set to help with his shoulder issues. Aminta Lew MD Feb 17, 2017 10:19
[2017-02-17] MEDS ORDERED: SENN8.6T15 PO (10:21)
[2017-02-17] MEDS ORDERED: LACT10SO PO (10:21)
[2017-02-17 12:00] VITALS: BP 112/68; PULSE 75; RESP 19; TEMP 97.6; O2SAT 95
== END 2017-02-17 13:23 | DRG 690 ==
LOC: PHEFT 20:08 → PHEDA 02-14 01:39 → PH3B 02-14 02:55 → OBSVTOIN 02-14 09:21
PROVIDERS: ADMIT Family Medicine; ATTEND Family Medicine
DX: N39.0 Urinary tract infection, site not specified (principal); E11.22 Type 2 diabetes mellitus with diabetic chronic kidney disease; G62.9 Polyneuropathy, unspecified; B96.4 Proteus (mirabilis) (morganii) as the cause of diseases classified elsewhere; I12.9 Hypertensive chronic kidney disease with stage 1 through stage 4 chronic kidney disease, or unspecified chronic kidney disease; F32.9 Major depressive disorder, single episode, unspecified; E78.5 Hyperlipidemia, unspecified; N18.9 Chronic kidney disease, unspecified; E53.8 Deficiency of other specified B group vitamins; G25.81 Restless legs syndrome; G47.30 Sleep apnea, unspecified; G89.29 Other chronic pain; K21.9 Gastro-esophageal reflux disease without esophagitis; K59.03 Drug induced constipation; M75.01 Adhesive capsulitis of right shoulder; M75.02 Adhesive capsulitis of left shoulder; H40.9 Unspecified glaucoma; W19.XXXA Unspecified fall, initial encounter; Z86.711 Personal history of pulmonary embolism; Z86.718 Personal history of other venous thrombosis and embolism; Z87.11 Personal history of peptic ulcer disease; Z87.891 Personal history of nicotine dependence; Z96.652 Presence of left artificial knee joint; Y92.009 Unspecified place in unspecified non-institutional (private) residence as the place of occurrence of the external cause
CPT/HCPCS: 71010; 80053; 81001; 82550; 82552; 83735; 84439; 84443; 84484; 85025; 87040; 87077; 87086; 87186; 93005; 93306; 93880; 96365; J0295; J0696; J1644; J3420

== ENCOUNTER 2017-02-19 13:48 | Inpatient (IN) | payer MEDICARE, BC ==
[~2017-02-19] VITALS: Ht 165.1 cm; Wt 110.0 kg
[~2017-02-19 13:48] MED LIST changes: +LACT10SO PO; +OXYC1TAB35 PO; +SENN8.6T15 PO; +TRAV0.00 EACH EYE; -[UNRECOGNIZED DRUG - OTHER]
[2017-02-19 14:02] VITALS: BP 92/52; PULSE 90; RESP 18; TEMP 98.6; O2SAT 99
[2017-02-19] MEDS ORDERED: BAZACRE TOP (14:31)
[2017-02-19] MEDS ORDERED: LACT10SO PO (14:31)
[2017-02-19] MEDS ORDERED: FLEEENE3 RECTAL (14:31)
[2017-02-19] MEDS ORDERED: DULC10SU3 RECTAL (14:31)
[2017-02-19] MEDS ORDERED: MILKSUS PO (14:31)
[2017-02-19] MEDS ORDERED: LYRI75CA PO (14:34)
[2017-02-19] MEDS ORDERED: PERC7.5T13 PO (14:34)
[2017-02-19] MEDS ORDERED: SODIUM CHLOR 0.9% 1000 ML INJ 300 ML IV ONE (14:38)
[2017-02-19] MEDS ORDERED: LISI10TA3 PO (14:38)
[2017-02-19] MEDS ORDERED: MAGN400T2 PO (14:38)
[2017-02-19] MEDS ORDERED: SODIUM CHLOR 0.9% 1000 ML INJ 1,000 ML IV ONE ×3 (14:38)
[2017-02-19] MEDS ORDERED: SENN8.6T8 PO (14:38)
[2017-02-19] MEDS ORDERED: BUME1TAB PO (14:38)
[2017-02-19] MEDS ORDERED: POTA1TAB4 PO (14:40)
[2017-02-19] MEDS ORDERED: SIMV20TA PO (14:46)
[2017-02-19] MEDS ORDERED: TRAM50TA PO (14:46)
[2017-02-19] MEDS ORDERED: CULT10CA PO (14:46)
[2017-02-19] MEDS ORDERED: CEPH-460 PO (14:46)
--- NOTE | 2017-02-19 14:46 | PD ---
HPI . Low blood pressure Chief Complaint: Abnormal Results Time Seen by Provider: 14:36 Travel History International Travel<30 days: No Contact w/Intl Traveler<30days: No Traveled to known affect area: No History of Present Illness HPI This is a [facility] patient who was sent to us for low blood pressure. Patient reports that he's only been in the [facility] for a couple of days and therefore rehabilitation following a hospital stay. He reports that he was in the hospital for a urinary tract infection and that he was having a lot of problems with strength and balance. His only real complaint to me today is that he hurts all over. He also states that he has not made any urine since being admitted to the [facility]. He states that he has the urge to urinate but is unable to pass any urine. He reports chronic shortness of breath. [id number]: Generalized SEVERITY: Systolic blood pressure reportedly 70 prior to presentation DURATION: Today TIMING: Continuous CONTEXT: Recent hospital admission for UTI MODIFYING FACTORS: Blood pressure improved with fluid bolus given by [facility] SYMPTOMS: Back pain and apparent urinary obstruction PFSH Past Medical History Arthritis: Yes Asthma: No Autoimmune Disease: No Blood Disorders: No Anxiety: No Depression: No Heart Rhythm Problems: No Cancer: No Cardiovascular Problems: Yes (WILLIAM FILTER PLACED 03-25-06) High Cholesterol: Yes Chemotherapy: No Chest Pain: No Congestive Heart Failure: No COPD: No Cerebrovascular Accident: No Diabetes: Yes Patient Takes Glucophage: No (borderline) Diminished Hearing: No Endocrine: Yes (DIABETIC) Gastrointestinal Disorders: Yes (HX POLYPS) GERD: Yes Glaucoma: Yes Genitourinary: Yes Headaches: No Hepatitis: No Hiatal Hernia: Yes Hypertension: Yes Immune Disorder: No Kidney Stones: No Musculoskeletal: Yes Neurologic: Yes (C5-6, C6-7 CERV FUSION) Psychiatric: No Reproductive: No Respiratory: Yes Migraines: No Myocardial Infarction: No Radiation Therapy: No Renal Failure: No Seizures: No Sickle Cell Disease: No Sleep Apnea: Yes (BIPAP AT NIGHT NEEDED) Thyroid Disease: No Ulcer: No Past Surgical History Abdominal Surgery: Yes (HERNIA REPAIR) AICD: No Cardiac Surgery: No Ear Surgery: No Endocrine Surgery: No Eye Surgery: Yes Genitourinary Surgery: Yes (PROSTATE SX (NO CANCER). PENILE IMPLANT) Gynecologic Surgery: No Joint Replacement: Yes (left total knee) Neurologic Surgery: Yes (01/2006 LALMINECTOMY FUSION C5-6,6-7) Oral Surgery: No Pacemaker: No Thoracic Surgery: No Other Surgery: Yes Social History Alcohol Use: No Tobacco Use: No Substance Use: No Allergies-Medications (Allergen,Severity, Reaction): Coded Allergies: Medrol (Verified Allergy, Severe, Swelling, 04/24/06) Prednisone (Verified Adverse Reaction, Severe, "STEROIDS"-SWELLING, HYPONATREMIA,HYPOKALEMIA, 04/24/06) Reported Meds & Prescriptions Reported Meds & Active Scripts Active Travatan Z Opth Drops (Travoprost) 0.004 % Soln 1 Drop EACH EYE HS Reported Tramadol (Tramadol HCl) 50 Mg Tab 50 Mg PO QID PRN Culturelle Immunity Suppo (Lactobacillus Rhamnosus (GG)) 15 B Cell Cap 1 Cap PO DAILY Keflex (Cephalexin) 500 Mg Cap 500 Mg PO Q6H Simvastatin 20 Mg Tab 20 Mg PO HS K-Tab (Potassium Chloride) 20 Meq Tab 20 Meq PO BID WITH FOOD Magnesium Oxide 400 Mg Tab 400 Mg PO DAILY Lisinopril 10 Mg Tab 10 Mg PO DAILY Bumetanide 1 Mg Tab 1 Mg PO DAILY Senna S (Sennosides-Docusate Sodium) 8.6-50 Mg Tab 1 Tab PO BID Percocet (Oxycodone-Acetaminophen) 7.5-325 mg Tab 1 Tab PO BID PRN Lyrica (Pregabalin) 75 Mg Cap 75 Mg PO BID Lactulose Liq (Lactulose) 10 Gm/15 Ml Soln 30 Ml PO BID PRN Fleet Enema Rectal (Sodium Phosphates Rectal) 7-19 Gm/118 Ml Enem 118 Ml RECTAL DAILY PRN Milk of Magnesia Liq (Magnesium Hydroxide) 400 Mg/5 Ml Susp 30 Ml PO DAILY PRN Dulcolax Supp (Bisacodyl) 10 Mg Supp 10 Mg RECTAL DAILY PRN Tad Protect (Skin Protectants, Misc.) 1 Cre Cre 1 Applic TOP QSHIFT &PRN Review of Systems Except as stated in HPI: all other systems reviewed are Neg General / Constitutional: No: Fever, Chills Respiratory: Positive: Shortness of Breath Gastrointestinal: No: Nausea, Vomiting, Diarrhea Genitourinary: Positive: Decreased Urinary Output Musculoskeletal: Positive: Myalgias, Arthralgias Physical Exam Narrative GENERAL: Older man with apparent COPD who does not appear to be in any acute distress. SKIN: Warm and dry. HEAD: Atraumatic. Normocephalic. EYES: Pupils equal and round. ENT: No nasal bleeding or discharge. Mucous membranes pink and moist. NECK: Trachea midline. Neck is supple CARDIOVASCULAR: Regular rate and rhythm. Systolic blood pressure is about 90. RESPIRATORY: No accessory muscle use. Lungs sound clear anteriorly. GASTROINTESTINAL: Abdomen soft, non-tender. He does seem to have bladder fullness palpable to about the umbilicus. MUSCULOSKELETAL: No obvious deformities. No edema. NEUROLOGICAL: Awake and alert. No obvious cranial nerve deficits. Motor grossly within normal limits. Normal speech. PSYCHIATRIC: Appropriate mood and affect; insight and judgment normal. Data Data Last Documented VS Vital Signs Date Time Temp Pulse Resp B/P Pulse Ox O2 Delivery O2 Flow Rate FiO2 02/19/17 16:24 76 18 105/76 93 Nasal Cannula 2 02/19/17 14:02 98.6 Orders Electrocardiogram (02/19/17 ) Complete Blood Count With Diff (02/19/17 14:38) Comprehensive Metabolic Panel (02/19/17 14:38) Lactic Acid Sepsis Protocol (02/19/17 14:38) Urinalysis - C+S If Indicated (02/19/17 14:38) Blood Culture (02/19/17 14:38) Chest, Single Ap (02/19/17 14:38) Ecg Monitoring (02/19/17 14:38) Iv Access Insert/Monitor (02/19/17 14:38) Oximetry (02/19/17 14:38) Oxygen Administration (02/19/17 14:38) Urinary Catheter Insert/Apply (02/19/17 14:38) Sodium Chlor 0.9% 1000 Ml Inj (Ns 1000 M (02/19/17 14:38) Sodium Chlor 0.9% 1000 Ml Inj (Ns 1000 M (02/19/17 14:38) Sodium Chlor 0.9% 1000 Ml Inj (Ns 1000 M (02/19/17 14:38) Sodium Chlor 0.9% 1000 Ml Inj (Ns 1000 M (02/19/17 14:38) Consult Urology (02/19/17 ) Sodium Chloride 0.9% Flush (Ns Flush) (02/19/17 16:00) Ceftriaxone Inj (Rocephin Inj) (02/19/17 16:00) Azithromycin Inj (Zithromax Inj) (02/19/17 16:00) (Hub Use Only)Inp Phy Cons/Ref (02/19/17 ) Admit Order (Ed Use Only) (02/19/17 16:45) Labs Laboratory Tests Test 02/19/17 02/19/17 15:04 15:05 Lactic Acid Level 3.3 mmol/L White Blood Count 13.4 TH/MM3 Red Blood Count 4.53 MIL/MM3 Hemoglobin 12.7 GM/DL Hematocrit 38.9 % Mean Corpuscular Volume 85.8 FL Mean Corpuscular Hemoglobin 28.0 PG Mean Corpuscular Hemoglobin 32.6 % Concent Red Cell Distribution Width 15.1 % Platelet Count 200 TH/MM3 Mean Platelet Volume 9.6 FL Neutrophils (%) (Auto) 78.7 % Lymphocytes (%) (Auto) 17.6 % Monocytes (%) (Auto) 3.1 % Eosinophils (%) (Auto) 0.1 % Basophils (%) (Auto) 0.5 % Neutrophils # (Auto) 10.6 TH/MM3 Lymphocytes # (Auto) 2.4 TH/MM3 Monocytes # (Auto) 0.4 TH/MM3 Eosinophils # (Auto) 0.0 TH/MM3 Basophils # (Auto) 0.1 TH/MM3 CBC Comment DIFF FINAL Differential Comment Sodium Level 127 MEQ/L Potassium Level 5.3 MEQ/L Chloride Level 94 MEQ/L Carbon Dioxide Level 20.7 MEQ/L Anion Gap 12 MEQ/L Blood Urea Nitrogen 57 MG/DL Creatinine 3.83 MG/DL Estimat Glomerular Filtration 15 ML/MIN Rate Random Glucose 141 MG/DL Calcium Level 9.1 MG/DL Total Bilirubin 0.6 MG/DL Aspartate Amino Transf 28 U/L (AST/SGOT) Alanine Aminotransferase 33 U/L (ALT/SGPT) Alkaline Phosphatase 61 U/L Total Protein 7.2 GM/DL Albumin 3.5 GM/DL [facility] Medical Decision Making Medical Screen Exam Complete: Yes Emergency Medical Condition: Yes Interpretation(s) EKG shows an atrial flutter rhythm with a rate of about 100. No ST segment elevation or depression. Differential Diagnosis Differential diagnosis of weakness includes but is not limited to infection, CVA , electrolyte disturbance, renal failure, hypoglycemia, UTI, ACS, acute blood loss Narrative Course [facility] with low blood pressure. I will do a septic workup. The patient also has a full bladder. He will be decompressed with a Carter. CBC & BMP Diagram 02/19/17 15:05 The renal failure is a new problem. Lactic acid is 3.3. Last Impressions Chest X-Ray 02/19/17 1438 Signed Impressions: Service Date/Time: Sunday, February 19, 2017 14:44 - CONCLUSION: 1. Development of basilar airspace consolidation since February 13 exam with trace pleural fluid. Cornel Cleveland MD Critical Care Narrative Aggregate critical care time was 45 minutes. Time to perform other separately billable procedures was not included in the critical care time. My time did not include minutes spent treating any other patients simultaneously or on activities that did not directly contribute to the patient's treatment. The services I provided to this patient were to treat and/or prevent clinically significant deterioration that could result in: Cardiovascular collapse, respiratory failure due to pneumonia, renal failure , hypertension I provided critical care services requiring my management, as noted below: Chart data review, documentation time, medication orders and management, vital sign assessments/reviewing monitor data, ordering and reviewing lab tests, ordering and interpreting/reviewing x-rays and diagnostic studies, care of the patient and discussion of the patient with the admitting physicians. Procedures Procedure Narrative A Carter catheter was attempted after nursing staff was unable to pass the Carter. The patient has unusual anatomy. 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 I was unable to pass a coud catheter beyond the prostate. Physician Communication Physician Communication Dr. Mann will admit. Dr. Gallego will see for urinary retention. Diagnosis Primary Impression: Pneumonia Qualified Code: J18.9 - Pneumonia of both lower lobes due to infectious organism Additional Impressions: Acute renal failure Qualified Code: N17.9 - Acute renal failure, unspecified acute renal failure type Acute urinary retention Admitting Information Admitting Physician Requests: Admit Condition: Maame Cardozo MD Feb 19, 2017 14:46
[2017-02-19 15:13] VITALS: O2SAT 96
[2017-02-19 15:30] VITALS: BP 107/52; PULSE 104; RESP 20; O2SAT 95
--- NOTE | 2017-02-19 15:35 | RADRPT ---
EXAM DATE/TIME: 02/19/2017 14:44 [facility] COMPARISON: CHEST SINGLE AP, February 13, 2017, 21:26. INDICATIONS : Short of breath. MEDICAL HISTORY : Diabetes mellitus type II. SURGICAL HISTORY : None. ENCOUNTER: Initial ACUITY: 2 days PAIN SCORE: 0/10 LOCATION: Bilateral chest FINDINGS: Compare February 13. There is development of basilar lung consolidation bilaterally since prior exam. Pr obable trace pleural fluid. Skinfolds present on the left. Heart size upper limits normal. Tortuous a therosclerotic aorta. CONCLUSION: 1. Development of basilar airspace consolidation since February 13 exam with trace pleural fluid. Cornel Cleveland MD on February 19, 2017 at 15:32 Board Certified Radiologist. This report was verified electronically.
[2017-02-19 15:50] LABS: AUTOMATED NEUTROPHIL # 10.6 TH/MM3 (1.8-7.7); BASOPHIL # 0.1 TH/MM3 (0-0.2); BASOPHIL % 0.5 % (0.0-2.0); EOSINOPHIL % 0.1 % (0.0-4.0); HEMATOCRIT 38.9 % (39.0-51.0); HEMO FLAGS DIFF FINAL; LYMPH % 17.6 % (9.0-44.0); LYMPHOCYTE # 2.4 TH/MM3 (1.0-4.8); MEAN CELL VOLUME 85.8 FL (80.0-100.0); MEAN CORPUSCULAR HGB CONC 32.6 % (32.0-36.0); MONO % 3.1 % (0.0-8.0); NEUT % 78.7 % (16.0-70.0); PLATELET COUNT 200 TH/MM3 (150-450); RED BLOOD COUNT 4.53 MIL/MM3 (4.50-5.90); RED CELL DISTRIBUTION WIDTH 15.1 % (11.6-17.2); WHITE BLOOD COUNT 13.4 TH/MM3 (4.0-11.0)
[2017-02-19] MEDS ORDERED: cefTRIAXone INJ 2,000 MG in SODIUM CHLORIDE 0.9% INJ 100 ML IV ONE (16:00)
[2017-02-19] MEDS ORDERED: AZITHROMYCIN INJ 500 MG in SODIUM CHLOR 0.9% 250 ML INJ 250 ML IV ONE (16:00)
[2017-02-19] MEDS ORDERED: SODIUM CHLORIDE 0.9% FLUSH 10 ML FLUSH IVF PRN (16:00)
[2017-02-19 16:07] LABS: ALT (GPT) 33 U/L (12-78); ANION GAP 12 MEQ/L (5-15); AST (GOT) 28 U/L (15-37); BICARBONATE 20.7 MEQ/L (21.0-32.0); BLOOD UREA NITROGEN 57 MG/DL (7-18); CHLORIDE 94 MEQ/L (98-107); GLOMERULAR FILTRATION RATE 15 ML/MIN (>89); POTASSIUM 5.3 MEQ/L (3.5-5.1); SODIUM (NA) 127 MEQ/L (136-145)
[2017-02-19 16:10] LABS: ALKALINE PHOSPHATASE 61 U/L (45-117); TOTAL BILIRUBIN ADULT 0.6 MG/DL (0.2-1.0)
[2017-02-19 16:24] VITALS: BP 105/76; PULSE 76; RESP 18; O2SAT 93
[2017-02-19] MEDS ORDERED: ACETAMINOPHEN 325 MG TAB PO PRN ×2 (17:30)
[2017-02-19] MEDS ORDERED: ONDANSETRON HCL 4 MG/2 ML VIAL IVP PRN (17:30)
[2017-02-19] MEDS ORDERED: NALOXONE HCL 0.4 MG/ML AMP IV PRN (17:30)
[2017-02-19] MEDS ORDERED: DOCUSATE SODIUM 50 MG/SENNA 8.6 MG TAB PO PRN (17:30)
[2017-02-19] MEDS ORDERED: SODIUM CHLORIDE 0.9% FLUSH 10 ML FLUSH IV FLUSH PRN (17:30)
[2017-02-19 17:41] LABS: LACTIC ACID GHOST NOT REPORTABLE
[2017-02-19] MEDS ORDERED: CEFEPIME INJ 1,000 MG in SODIUM CHLORIDE 0.9% INJ 100 ML IV SCH (18:00)
--- NOTE | 2017-02-19 18:59 | HHI.PR ---
Addendum to Inpatient Note Additional Information Patient was initially admitted to [facility] for hypotension/hyperkalemia/urinary retention/acute on chronic renal failure Urology was consulted by ED physician to place a davis due to patient's history of penile implant; sonography technologist was in the room attempted to place one however were unsuccessful Then Patient was seen in the presence of both his and his son During my encounter, patient was alert and oriented 2 History was obtained and physical exam was performed Patient requested Full code after POA who happened to be the daughter was called in via telephone on the speaker by patient's son After I left the room, about 10 minutes later a code blue was called and patient was pronounced at 17:22 Sarkis Mann MD Feb 19, 2017 18:59
[2017-02-19] MEDS ORDERED: ATROPINE SULFATE 1 MG/10 ML SYRINGE IV ONE (20:01)
[2017-02-19] MEDS ORDERED: EPINEPHrine HCL (1:10,000) 1 MG/10 ML SYRINGE IV ONE (20:01)
[2017-02-19] MEDS ORDERED: LACTOBACILLUS ACIDOPHILUS TAB PO SCH (21:00)
[2017-02-19] MEDS ORDERED: SODIUM CHLORIDE 0.9% FLUSH 10 ML FLUSH IV FLUSH SCH (21:00)
--- NOTE | 2017-02-20 17:21 | EKG ---
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 Rate has increased since prior tracing, otherwise largely Unch anged. ABNORMAL ECG PREVIOUS TRACING : 02/13/2017 21.00 DOCTOR: Eric Hernández Interpretating Date/Time 02/20/2017 17:20:37
== END 2017-02-19 20:02 | disposition expired | DRG 684 ==
LOC: NEPA 13:48 → NEDA 16:47
PROVIDERS: ADMIT Hospitalist; ATTEND Hospitalist
DX: N17.9 Acute kidney failure, unspecified (principal); E11.22 Type 2 diabetes mellitus with diabetic chronic kidney disease; I95.9 Hypotension, unspecified; R33.9 Retention of urine, unspecified; E87.5 Hyperkalemia; N18.9 Chronic kidney disease, unspecified; I12.9 Hypertensive chronic kidney disease with stage 1 through stage 4 chronic kidney disease, or unspecified chronic kidney disease; Z88.8 Allergy status to other drugs, medicaments and biological substances
CPT/HCPCS: 51703; 71010; 80053; 83605; 85025; 87040; 92950; 93005; J0171; J0461; J7030